=== PATIENT | female | born 1975 | race Caucasian/White ===

== ENCOUNTER → 2017-12-20 | Outpatient (CLI) | payer MEDICARE, MEDICAID ==
[~2017-12-20] MED LIST: CYCL10TA9; DICL50TA4 PO; GABA-490; HUMALOG; INSU100I10; LISI10TA2; LORA1TAB; METF10002; SULF1TAB35 PO
== END ==
LOC: CARD 09:33
PROVIDERS: ATTEND Nurse Practitioner Community Health
DX: G90.01 Carotid sinus syncope (principal); R00.0 Tachycardia, unspecified; R01.1 Cardiac murmur, unspecified
CPT/HCPCS: 93306

== ENCOUNTER 2018-04-04 13:53 | Outpatient (RCR) | payer MEDICARE, MEDICAID ==
[~2018-04-04 13:53] MED LIST changes: +METF-399; -METF10002
== END 2018-04-08 | disposition home or self-care (01) ==
PROVIDERS: ATTEND Nurse Practitioner Primary Care
DX: M54.5 Low back pain (principal)

== ENCOUNTER 2018-04-09 12:49 | Outpatient (RCR) | payer MEDICARE, MEDICAID | END 2018-05-21 11:09 | disposition home or self-care (01) | PROVIDERS: ATTEND Nurse Practitioner Primary Care | DX: M54.5 Low back pain (principal) ==